=== PATIENT | male | born 1990 | race Two or more races ===

== ENCOUNTER 2019-01-08 07:51 | Emergency (ER) | payer OTHER ==
[~2019-01-08] VITALS: Ht 165.1 cm; Wt 63.5 kg
[2019-01-08 07:58] VITALS: BP 138/89
[2019-01-08] MEDS ORDERED: TDAP [DIPH/PERTUSSIS/TET] 0.5 ML VIAL IM ONE ×2 (08:22→08:30)
--- NOTE | 2019-01-08 08:32 | NUR ---
Patient discharged to P officer in stable condition. Written and verbal after care instructions given. Patient verbalizes understanding of instruction.
== END 2019-01-08 08:35 ==
LOC: ER 07:53
DX: Z02.89 Encounter for other administrative examinations (principal); Z23 Encounter for immunization; V49.69XA Unspecified car occupant injured in collision with other motor vehicles in traffic accident, initial encounter; Y93.89 Activity, other specified; Y92.488 Other paved roadways as the place of occurrence of the external cause; Y99.8 Other external cause status
CPT/HCPCS: 90471; 90715; 99283; A6403